=== PATIENT | male | born 1985 | race African-American/Black ===

== ENCOUNTER 2017-11-01 23:24 | Emergency (ER) | payer BC ==
[~2017-11-01] VITALS: Ht 180.3 cm; Wt 76.2 kg
[2017-11-01] MEDS ORDERED: ZYRTEC10 M5 PO (23:38)
[2017-11-02] MEDS ORDERED: VALTREX1000 MG PO (00:07)
[2017-11-02] MEDS ORDERED: HYDROCODONE-AP1 EAC6 PO (00:07)
[2017-11-02 00:17] VITALS: BP 124/88
== END 2017-11-02 00:21 | disposition home or self-care (01) ==
LOC: M.ERS 23:24
DX: B02.9 Zoster without complications (principal)